=== PATIENT | male | born 1975 | race Caucasian/White ===

== ENCOUNTER 2017-04-14 10:42 | Outpatient (CLI) | payer BC ==
--- NOTE | 2017-04-14 14:48 | RAD ---
FOUR VIEWS LUMBAR SPINE: History: Low back pain radiating down the butt cheeks x several years. Comparison: None. FINDINGS: Standing upright, standing neutral, standing flexion and standing extension views demonstrate six lum bar type vertebral bodies. There is partial sacralization of L6. Pseudoarthrosis of the left L6 ala w ith the sacrum. Vertebral body height is maintained. No fracture. No significant loss of disc space h eight. No abnormal alignment in the neutral position. No abnormal translational motion from extension or flexion. There is an increased density projecting over the left hemiabdomen which may represent a left uretera l calculus measuring approximately 1.2 cm. IMPRESSION: 1. Six lumbar type vertebral bodies with pseudoarthrosis of the left L6 ala of the sacrum. 2. No abnormal translation of motion. 3. Left renal calculus is suspected. POS: [facility]
--- NOTE | 2017-04-14 15:40 | MRI ---
MRI OF THE LUMBAR SPINE WITHOUT CONTRAST: DATE: 04/14/17. COMPARISON: None. HISTORY: Low back pain radiating into the buttock regions bilaterally. TECHNIQUE: Multiplanar, multisequence MR imaging of the lumbar spine is provided without contrast. FINDINGS: The STIR imaging demonstrates a focal area of increased signal intensity along the inferior aspect of the L3 vertebral body abutting the inferior end plate measuring 1.2 cm in craniocaudal dimension. T his lesion is of increased signal intensity on T2 and decreased signal intensity on T1. The etiology is uncertain. This could represent atypical hemangioma or Schmorl's node. The imaged retroperitoneal structures appear grossly unremarkable. Assuming 5 lumbar-type vertebral bodies, conus medullaris terminates at the T12-L1 level. T12-L1: Intervertebral disk height and signal intensity appears within normal limits with no signifi cant central canal or neural foraminal stenosis. L1-2: Intervertebral disk height and signal intensity is within normal limits with no significant ce ntral canal or neural foraminal stenosis. L2-3: Intervertebral disk height and signal intensity is within normal limits with no significant ce ntral canal or neural foraminal stenosis. L3-4: Intervertebral disk height and signal intensity is within normal limits. Mild facet hypertrop hy on the right with no significant central canal or neural foraminal stenosis. L4-5: Intervertebral disk height and signal intensity is within normal limits. Minimal disk bulge. Mild bilateral facet hypertrophy, right greater than left. No significant central canal or neural f oraminal stenosis. L5-S1: There is mild intervertebral disk space narrowing. There is no significant central canal or neural foraminal stenosis. The L4 vertebral body demonstrates subtle relative decreased T1 and T2 signal intensity with no evide nce for edema on STIR imaging. Etiology/significance is uncertain. There is some artifact which ext ends through the lower lumbar spine, and may, in part, account for this appearance. IMPRESSION: 1. No significant central canal or neural foraminal stenosis. 2. Nonspecific T2 hyperintense and T1 hypointense round lesion within the inferior aspect of the L3 vertebral body as above. 3. Subtle decreased signal intensity is identified within L4 vertebral body which could be artifactu al in nature. Vertebral lesion cannot be fully excluded but is felt less likely. Please consider a CT examination of the lumbar spine to better evaluate findings at L3 and L4. POS: [facility]
== END 2017-04-14 10:43 | disposition home or self-care (01) ==
LOC: TBSIIMAG 10:42
PROVIDERS: ATTEND Surgery
DX: M54.5 Low back pain (principal); S32.10XA Unspecified fracture of sacrum, initial encounter for closed fracture
CPT/HCPCS: 72110; 72148

== ENCOUNTER 2018-07-07 10:06 | Outpatient (CLI) | payer BC ==
--- NOTE | 2018-07-07 12:04 | RAD ---
LUMBAR SPINE 2 VIEWS: Date: 07/07/18 HISTORY: Dorsalgia. AP and lateral views of the lumbar spine are performed. COMPARISON: 04/14/17. FINDINGS: Very mild disc osteophytosis and facet arthrosis. No acute fracture or dislocation. No malalignment. IMPRESSION: Unremarkable lumbar spine 2 views. POS: [facility]
== END 2018-07-07 10:07 | disposition home or self-care (01) ==
LOC: BICRAD 10:06
PROVIDERS: ATTEND Internal Medicine Rheumatology
DX: M54.89 Other dorsalgia (principal)
CPT/HCPCS: 72100

== ENCOUNTER 2019-05-26 16:13 | Outpatient (CLI) | payer BC ==
--- NOTE | 2019-05-26 16:26 | RAD ---
EXAM: Chest 2 views: HISTORY: Tobacco use. COMPARISON: None. FINDINGS: There is a normal-sized cardiomediastinal silhouette. There is no evidence of consolidation, mass, or pleural effusion. The bones are unremarkable. IMPRESSION: No evidence of acute cardiopulmonary disease
== END 2019-05-26 16:14 | disposition home or self-care (01) ==
LOC: BICRAD 16:13
PROVIDERS: ATTEND Internal Medicine Rheumatology
DX: Z72.0 Tobacco use (principal)
CPT/HCPCS: 71046

== ENCOUNTER 2022-08-22 16:02 | Outpatient (CLI) | payer BC | END 2022-08-22 16:03 | disposition home or self-care (01) | LOC: RAD 16:02 | PROVIDERS: ATTEND Internal Medicine Rheumatology | DX: M45.A0 Non-radiographic axial spondyloarthritis of unspecified sites in spine (principal) | CPT/HCPCS: 72052 ==